=== PATIENT | male | born 1990 | race Caucasian/White ===

== ENCOUNTER 2017-06-04 22:46 | Emergency (ER) | payer BC, OTHER ==
[~2017-06-04] VITALS: Ht 177.8 cm; Wt 95.0 kg
--- NOTE | 2017-06-04 22:49 | ED.ADGEN ---
Adult General Chief Complaint Chief Complaint " I fell thru vent on the floor and scrapped up this Lt leg... and hit my head... I had a seizure after wards.. it was because my Dog .... Achilles.. He 's a pit bull and Hungarian Murphy mix .. gets excited when I come home and he pulled the vent off the floor... I did not see it was off.. and I fell thru the floor... I ve scrapped up this Lt leg and hip.. and I hit my head...hard.... but I had a seizure afterwards.." HPI HPI Patient is a 26 year old male who presents with above hx and complaints abrasion , contusion, entire Lt.leg from stepping thru heating vent / thru. floor. Pt is ambulatory with limp. Pt did hit his head on Rt and has findings of contusion of Rt side head and face. Pt. has neck central tenderness and spasms. Pt. TM intact on Lt. has good bite. Patient reportedly had tonic- clonic seizure for one half minutes after the fall. Patient states he is up-to- date on his tetanus. ( l 1/2 yrs). Patient denies other injury at this time. observed the Tonic /Clonic seizure. She had turned him on his side, because he was not managing his secretions. Review of Systems Review of Systems Constitutional: Denies fever or chills [] Eyes: Denies change in visual acuity, redness, or eye pain [] HENT: Denies nasal congestion or sore throat [] Complaints of head injury and neck pain. Respiratory: Denies cough or shortness of breath [] Cardiovascular: No additional information not addressed in HPI [] GI: Denies abdominal pain, nausea, vomiting, bloody stools or diarrhea [] : Denies dysuria or hematuria [] Musculoskeletal: Denies back pain or joint pain []Except complaints of Lt ankle , leg and hip injury. Integument: Denies rash or skin lesions []Abrasions and contusions. Neurologic: Complaints of headache, . Denies focal weakness or sensory changes [] Endocrine: Denies polyuria or polydipsia [] All other systems were reviewed and found to be within normal limits, except as documented in this note. Family History Family History Non-contributory Current Medications Current Medications Current Medications Medications (Trade) Dose Ordered Sig/Mannie Start Time Stop Time Status Last Admin Dose Admin Lactated Ringer's 1,000 ml @ 1,000 mls/hr Q1H 06/05/17 00:15 06/05/17 01:14 DC 06/05/17 00:15 1,000 MLS/HR Oxycodone/ Acetaminophen (Percocet 5/325) 1 tab STK-MED ONCE 06/05/17 01:48 06/05/17 01:51 DC Potassium Chloride (KCl Oral Soln) 40 meq 1X ONCE 06/05/17 01:00 06/05/17 01:14 DC 06/05/17 01:06 40 MEQ Allergies Allergies Allergies Coded Allergies Type Severity Reaction Last Updated Verified No Known Drug Allergies 06/04/17 No Physical Exam Physical Exam Constitutional: Well developed, well nourished, moderately acute distress, non- toxic appearance. [] HENT: Normocephalic, contusion Lt side scalp,, bilateral external ears normal, oropharynx moist, no oral exudates, nose normal. []TM's intact. Eyes: PERRLA, EOMI, conjunctiva normal, no discharge. [] Neck: Normal range of motion, no tenderness, supple, no stridor. [] Cardiovascular:Heart rate regular rhythm, no murmur [] Lungs & Thorax: Bilateral breath sounds clear to auscultation [] Abdomen: Bowel sounds normal, soft, no tenderness, no masses, no pulsatile masses. [] Skin: Warm, dry, has rt. leg erythema, no rash. Ecchymosis, contusions, and abrasions from the ankle all the way up leg to top of pelvis on Lt. Back: No tenderness, no CVA tenderness. [] Extremities: Lt. leg tenderness, no cyanosis, no clubbing, ROM intact,Lt edema. Abrasions and contusions. Neurologic: Alert and oriented X 3, No gross motor function deficits, , normal sensory function, no focal deficits noted. []Limping gait- Lt leg. DTR + 2, mild drift on Rt. Psychologic: Anxious, judgement normal, mood normal. [] Current Patient Data Lab Results Laboratory Tests Test 06/04/17 23:58 06/05/17 00:17 White Blood Count 16.9 x10^3/uL (4.0-11.0) H Red Blood Count 5.02 x10^6/uL (4.30-5.70) Hemoglobin 15.8 g/dL (13.0-17.5) Hematocrit 45.9 % (39.0-53.0) Mean Corpuscular Volume 91 fL (79-100) Mean Corpuscular Hemoglobin 32 pg (25-35) Mean Corpuscular Hemoglobin Concent 35 g/dL (31-37) Red Cell Distribution Width 13.1 % (11.5-14.5) Platelet Count 294 x10^3/uL (140-400) Neutrophils (%) (Auto) 51 % (31-73) Lymphocytes (%) (Auto) 31 % (24-48) Monocytes (%) (Auto) 9 % (0-9) Eosinophils (%) (Auto) 8 % (0-3) H Basophils (%) (Auto) 1 % (0-3) Neutrophils # (Auto) 8.5 x10^3uL (1.8-7.7) H Lymphocytes # (Auto) 5.3 x10^3/uL (1.0-4.8) H Monocytes # (Auto) 1.5 x10^3/uL (0.0-1.1) H Eosinophils # (Auto) 1.4 x10^3/uL (0.0-0.7) H Basophils # (Auto) 0.2 x10^3/uL (0.0-0.2) Segmented Neutrophils % 47 % (35-66) Lymphocytes % 35 % (24-48) Monocytes % 13 % (0-10) H Eosinophils % 5 % (0-5) Platelet Estimate Adequate (ADEQUATE) Platelet Clumps, EDTA Present Prothrombin Time 10.3 SEC (9.4-11.4) Prothrombin Time INR 1.0 (0.9-1.1) PTT 26 SEC (23-33) Sodium Level 139 mmol/L (136-145) Potassium Level 3.2 mmol/L (3.5-5.1) L Chloride Level 101 mmol/L (98-107) Carbon Dioxide Level 27 mmol/L (21-32) Anion Gap 11 (6-14) Blood Urea Nitrogen 9 mg/dL (8-26) Creatinine 0.9 mg/dL (0.7-1.3) Estimated GFR (Cockcroft-Gault) 103.7 Glucose Level 109 mg/dL (70-99) H Calcium Level 9.1 mg/dL (8.5-10.1) Magnesium Level 2.0 mg/dL (1.8-2.4) Total Bilirubin 0.5 mg/dL (0.2-1.0) Direct Bilirubin 0.1 mg/dL (0.0-0.2) Aspartate Amino Transferase (AST) 16 U/L (15-37) Alanine Aminotransferase (ALT) 30 U/L (16-63) Alkaline Phosphatase 75 U/L (46-116) Troponin I Quantitative < 0.017 ng/mL (0-0.055) Total Protein 7.9 g/dL (6.4-8.2) Albumin 4.3 g/dL (3.4-5.0) Urine Collection Type Unknown Urine Color Yellow Urine Clarity Clear Urine pH 5.0 Urine Specific [place] <=1.005 Urine Protein Neg (NEG-TRACE) Urine Glucose (UA) Neg mg/dL (NEG) Urine Ketones (Stick) Neg mg/dL (NEG) Urine Blood Neg (NEG) Urine Nitrite Neg (NEG) Urine Bilirubin Neg (NEG) Urine Urobilinogen Dipstick 0.2 mg/dL (0.2 mg/dL) Urine Leukocyte Esterase Neg (NEG) Urine RBC 0 /HPF (0-2) Urine WBC 0 /HPF (0-4) Urine Squamous Epithelial Cells Occ /LPF Urine Bacteria 0 /HPF (0-FEW) Urine Opiates Screen Neg (NEG) Urine Methadone Screen Neg (NEG) Urine Barbiturates Neg (NEG) Urine Phencyclidine Screen Neg (NEG) Urine Amphetamine/Methamphetamine Neg (NEG) Urine Benzodiazepines Screen Neg (NEG) Urine Cocaine Screen Neg (NEG) Urine Cannabinoids Screen Pos (NEG) Urine Ethyl Alcohol Neg (NEG) EKG EKG [] Radiology/Procedures Radiology/Procedures My interpretation of CT head shows no shift, mass, edema, bleed, or fracture. My interpretation of cervical thumb show no obvious fracture dislocation. See formal report when available.[] Course & Med Decision Making Course & Med Decision Making Pertinent Labs and Imaging studies reviewed. (See chart for details) Apply polysporin four times a day to abrasions until healed. [] Final Impression Final Impression 1. Fall 2. Contusions and Abrasion Lt leg 3. Head Injury 4. Hx. of Seizure 5. Gastritis 6. Leukocytosis and Thrombocytopenia 7. Recent influenza [] Problems: Dragon Disclaimer Dragon Disclaimer This electronic medical record was generated, in whole or in part, using a voice recognition dictation system. VIVIANA LEMOS MD Jun 04, 2017 22:49
[2017-06-04] MEDS ORDERED: RANI300T3 PO (23:40)
[2017-06-04] MEDS ORDERED: [UNRECOGNIZED DRUG - OTHER] (23:41)
--- NOTE | 2017-06-05 00:03 | RAD ---
Indication: Trauma. TECHNIQUE: CT head without IV contrast COMPARISON: None FINDINGS: No pathologic extra-axial or intra-axial fluid collection. The ventricles and basal cisterns are within normal limits. No acute intracranial bleed. No focal loss of diop-white differentiation. Visualized orbits are within normal limits. No calvarial fractures. Visualized paranasal sinuses and mastoid air cells are clear. IMPRESSION: No acute intracranial process on this noncontrast CT. Electronically signed by: Eric Hanson DO (06/04/2017 11:59 PM) [facility]
[2017-06-05] MEDS: IV RINGERS SOLUTION,LACTATED 1,000 ML IV SCH (00:15)
[2017-06-05 00:18] LABS: BASO # 0.2 x10^3/uL (0.0-0.2); BASO % 1 % (0-3); EOS # 1.4 x10^3/uL (0.0-0.7); EOS % 8 % (0-3); HEMATOCRIT 45.9 % (39.0-53.0); HEMOGLOBIN 15.8 g/dL (13.0-17.5); LYMPH # 5.3 x10^3/uL (1.0-4.8); LYMPH % 31 % (24-48); MEAN CORPUSCULAR HEMOGLOBIN 32 pg (25-35); MEAN CORPUSCULAR HGB CONC 35 g/dL (31-37); MEAN CORPUSCULAR VOLUME 91 fL (79-100); MONO # 1.5 x10^3/uL (0.0-1.1); MONO % 9 % (0-9); NEUT # 8.5 x10^3uL (1.8-7.7); NEUT % 51 % (31-73); RED BLOOD COUNT 5.02 x10^6/uL (4.30-5.70); RED CELL DISTRIBUTION WIDTH 13.1 % (11.5-14.5); WHITE BLOOD COUNT 16.9 x10^3/uL (4.0-11.0)
[2017-06-05 00:37] LABS: ALBUMIN 4.3 g/dL (3.4-5.0); CALCIUM 9.1 mg/dL (8.5-10.1); CREATININE 0.9 mg/dL (0.7-1.3); DIRECT BILIRUBIN 0.1 mg/dL (0.0-0.2); GFR 103.7; POTASSIUM 3.2 mmol/L (3.5-5.1); TOTAL BILIRUBIN 0.5 mg/dL (0.2-1.0); TOTAL PROTEIN 7.9 g/dL (6.4-8.2)
[2017-06-05 00:38] LABS: % EOS 5 % (0-5); % LYMPHS 35 % (24-48); % MONOS 13 % (0-10); % SEGS 47 % (35-66); PLT ESTIMATE ADEQUATE (ADEQUATE)
[2017-06-05 00:40] LABS: PLATELET CLUMP PRESENT
[2017-06-05 01:03] LABS: BARBITURATES NEG (NEG); BENZODIAZEPINES NEG (NEG); CANNABINOIDS POS (NEG); COCAINE NEG (NEG); METHADONE NEG (NEG); OPIATES NEG (NEG); PHENCYCLIDINE NEG (NEG)
[2017-06-05 01:04] LABS: AMPHETAMINE/METHAMPHETAMINE NEG (NEG)
[2017-06-05] MEDS: POTASSIUM CHLORIDE 20 MEQ/15 ML ORAL LIQUID. PO ONE (01:06)
[2017-06-05 01:18] LABS: PLATELET COUNT 294 x10^3/uL (140-400)
[2017-06-05] MEDS ORDERED: RANI150T6 PO (01:22)
[2017-06-05 01:23] LABS: BACTERIA,URINE 0 /HPF (0-FEW); BILIRUBIN,URINE NEG (NEG); CLARITY,URINE CLEAR; COLOR,URINE YELLOW; GLUCOSE,URINE NEG (NEG); NITRITE,URINE NEG (NEG); RBC,URINE 0 /HPF (0-2); SQUAMOUS EPITHELIAL CELL,UR OCC /LPF; UROBILINOGEN,URINE 0.2 mg/dL (0.2 mg/dL); WBC,URINE 0 /HPF (0-4)
--- NOTE | 2017-06-05 01:27 | EKG ---
[address] [address] Test Date: 2017-06-04 Test Time: 23:49:42 Pat Name: JANETH CHURCH Department: Room: Gender: M [employer]: : [id number] Requested By: VIVIANA LEMOS Order Number: [id number] Reading MD: Measurements Intervals [place] Rate: 86 P: 23 RI: 178 QRS: 37 QRSD: 92 T: 0 QT: 342 QTc: 412 Interpretive Statements SINUS RHYTHM NO SPECIFIC ECG ABNORMALITIES RI6.01 No previous ECG available for comparison
[2017-06-05 01:30] VITALS: BP 132/70
[2017-06-05] MEDS ORDERED: OXYC-323 PO (01:43)
[2017-06-05] MEDS: oxyCODONE/APAP 5/325 1 TAB TABLET PO ONE (01:45)
[2017-06-05] MEDS ORDERED: oxyCODONE/APAP 5/325 1 TAB TABLET ONE (01:48)
--- NOTE | 2017-06-05 07:55 | RAD ---
Acute abdomen series with chest, 3 views, 06/04/2017: History: Epigastric pain and tenderness after a fall The abdominal gas pattern is unremarkable. No free air is present in the abdomen. There is no evidence of organomegaly or abnormal abdominal calcification. The heart size is normal. The lungs are clear. There is no evidence of pleural fluid or pneumothorax. IMPRESSION: No acute abdominal abnormality is detected.
== END 2017-06-05 01:50 | disposition home or self-care (01) ==
LOC: ER 22:46
DX: S80.12XA Contusion of left lower leg, initial encounter (principal); S00.93XA Contusion of unspecified part of head, initial encounter; R56.9 Unspecified convulsions; K29.70 Gastritis, unspecified, without bleeding; D69.6 Thrombocytopenia, unspecified; D72.819 Decreased white blood cell count, unspecified; W19.XXXA Unspecified fall, initial encounter; Y93.89 Activity, other specified; Y99.8 Other external cause status; Y92.89 Other specified places as the place of occurrence of the external cause
CPT/HCPCS: 36415; 70450; 74022; 80048; 80076; 80307; 81001; 83735; 84443; 84484; 85007; 85025; 85610; 85730; 93005; 96360; 99285; J7120; G0479

== ENCOUNTER → 2018-05-26 | Outpatient (CLI) | payer BC ==
[~2018-05-26] MED LIST: OXYC1TAB15 PO; RANI150T21 PO; RANI300T3 PO; [UNRECOGNIZED DRUG - OTHER]
--- NOTE | 2018-05-26 18:20 | RAD ---
Indication:LLQ PAIN TECHNIQUE: Grayscale, color Doppler and spectral waveform is of the abdomen obtained. COMPARISON:None FINDINGS:No gallstones, pericholecystic fluid or gallbladder wall thickening. Visualized pancreas is within normal limits. Aorta and IVC are within normal limits. Liver measures 16 7 m in longest dimension and is normal in size with mildly increased echogenicity of the parenchyma. Main portal vein is patent with hepatopedal flow. CBD measures 2 mm in diameter and is within normal limits. Right kidney measures 10.4 cm in length without hydronephrosis. Spleen measures 11 cm in length and is normal in size. Left kidney measures 11.3 cm in length without hydronephrosis. IMPRESSION: 1. No hepatosplenomegaly. Hepatic steatosis. 2. No cholelithiasis. Electronically signed by: Eric Hanson DO (05/26/2018 6:17 PM) [id number]
== END | disposition home or self-care (01) ==
LOC: DXRAD 16:33
PROVIDERS: ATTEND Family Medicine
DX: K76.0 Fatty (change of) liver, not elsewhere classified (principal)
CPT/HCPCS: 76700

== ENCOUNTER → 2018-05-29 | Outpatient (CLI) | payer BC ==
[~2018-05-29] MED LIST changes: +IOHEXOL 240 MG/ML 50ML VIAL. ONE
[2018-05-29] MEDS: IOHEXOL 300 MG/ML 75 ML VIAL. IV ONE (09:10)
[2018-05-29] MEDS: IOHEXOL 240 MG/ML 50ML VIAL. PO ONE (09:10)
--- NOTE | 2018-05-29 12:47 | RAD ---
CT of the abdomen and pelvis with contrast, 05/29/2018: HISTORY: Left lower quadrant pain Multidetector CT imaging was performed following oral and IV administration of contrast. There is no evidence of a hepatic mass or bile duct dilatation. The gallbladder is unremarkable. No pancreatic abnormality is seen. The spleen is of normal size. No renal or adrenal abnormality is detected. No abdominal or pelvic adenopathy is identified. The bowel loops are not dilated. The appendix is visualized and shows no significant abnormality. A small diverticulum is noted arising from the second portion of the duodenum. No free fluid or free air is evident in the abdomen or pelvis. IMPRESSION: No significant abdominal or pelvic abnormality is detected. PQRS Compliance Statement- One or more of the following individualized dose reduction techniques were utilized for this examination: 1. Automated exposure control 2. Adjustment of the mA and/or kV according to patient size 3. Use of iterative reconstruction technique Electronically signed by: Noah Murphy MD (05/29/2018 12:44 PM) [facility]
== END | disposition home or self-care (01) ==
LOC: CT 07:51
PROVIDERS: ATTEND Family Medicine
DX: K57.10 Diverticulosis of small intestine without perforation or abscess without bleeding (principal)
CPT/HCPCS: 74177; Q9966; Q9967